=== PATIENT | female | born 1965 | race Caucasian/White ===

== ENCOUNTER → 2017-01-24 | Outpatient (CLI) | payer OTHER | LOC: M RAD 09:09 | PROVIDERS: ATTEND Nurse Practitioner Family | DX: R10.9 Unspecified abdominal pain (principal) ==

== ENCOUNTER → 2017-02-07 | Outpatient (CLI) | payer OTHER ==
--- NOTE | 2017-02-08 07:52 | REP ---
PELVIC ULTRASOUND: CLINICAL: Pelvic pain. TECHNIQUE: Transabdominal pelvic ultrasound with color evaluation. FINDINGS: Bladder is unremarkable and measures 11.3 x 7.4 x 10.7 cm. Normal anteverted uterus measures 8.3 x 3.3 x 4.2 cm. The endometrial complex measures 3.5 mm thickness. No discrete uterine or endometrial abnormalities are appreciated. The bilateral ovaries are normal in appearance, right ovary measures 1.8 x 0.9 x 2.1 cm. Left ovary measures 2.0 x 1.0 x 2.0 cm. No pelvic fluid or adnexal mass lesions. IMPRESSION: Normal pelvic ultrasound. Signed by Ralph Grissom MD 02/13/2017 12:03 A
== END ==
LOC: M RAD 14:59
PROVIDERS: ATTEND Nurse Practitioner Family
DX: R10.2 Pelvic and perineal pain (principal)

== ENCOUNTER → 2018-12-04 | Outpatient (CLI) | payer OTHER ==
--- NOTE | 2018-12-04 17:41 | REP ---
CT brain without contrast: History: Injury in a fall. Left-sided head pain. Plate on the left side. No comparison imaging. Findings: Preliminary digital [employer] radiograph demonstrates craniotomy fixation devices in the calvarium. Bone window settings demonstrate that these are left-sided post left temporal and frontal craniotomy. No acute calvarial abnormality is seen. Visualized paranasal sinuses are clear. No intraorbital abnormality is observed. There is a fairly large area of encephalomalacia in the temporal lobe on the left. There is no evidence of intracranial hemorrhage. There is no evidence of acute infarction, mass, or other extra-axial fluid collection. No midline shift is seen. Impression: Status post left temporal frontal craniotomy. 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 No acute intracranial lesion. Electronically Signed by Chris Amado MD 12/05/2018 07:44 A
== END ==
LOC: M RAD 15:43
PROVIDERS: ATTEND Family Medicine
DX: R51 Headache (principal)